=== PATIENT | female | born 1935 | race Caucasian/White ===

== ENCOUNTER 2022-07-02 13:22 | Outpatient (CLI) | payer OTHER, SELFPAY ==
[2022-07-02 15:58] LABS: Basophils Percent Auto 0.3 % (0.2-1.2); Eosinophils Absolute Auto 0.2 K/mm3 (0-0.3); Eosinophils Percent Auto 1.9 % (0-4.4); Hematocrit 40.4 % (37.0-47.0); Hemoglobin 13.1 g/dL (12.0-15.0); Immature Granulocyte Absolute 0.03 K/mm3 (0.00-0.031); Immature Granulocyte Percent A 0.3 % (0-0.5); Lymphocytes Absolute Auto 2.36 K/mm3 (0.9-3.2); Lymphocytes Percent Auto 23.1 % (18.3-44.2); Mean Corpuscular HGB Conc 32.4 g/dl (32-36); Mean Corpuscular Volume 95.7 fl (80-100); Mean Platelet Volume 9.9 fl (7.4-10.4); Monocytes Absolute Auto 0.8 K/mm3 (0.1-0.6); Monocytes Percent Auto 8.2 % (2.6-8.5); Neutrophils Absolute Auto 6.8 K/mm3 (1.3-6.7); Neutrophils Percent Auto 66.2 % (45.5-73.1); Platelet Count Result 325 k/mm3 (150-375); Red Blood Count 4.22 M/mm3 (4.2-5.4); Red Cell Distribution Width 12.8 % (11.5-14.5); White Blood Count 10.2 K/mm3 (4.5-10.0)
[2022-07-02 16:08] LABS: Albumin Level 4.3 g/dL (3.5-5.1); Anion Gap 7 mmol/L (8-16); Blood Urea Nitrogen 21 mg/dL (7-17); Calcium 9.7 mg/dL (8.4-10.2); Carbon Dioxide 33 mmol/L (22-30); Chloride 97 mmol/L (98-107); Estimated Glomerular Filt Rate 59; Glucose 86 mg/dL (65-110); Potassium 3.7 mmol/L (3.4-5.0); Sodium 137 mmol/L (137-145)
[2022-07-02 16:26] LABS: Hemoglobin A1C 5.3 % (<5.7)
[2022-07-02 19:29] LABS: Urine Cotinine NEGATIVE
== END 2022-07-02 13:23 | disposition home or self-care (01) ==
PROVIDERS: PCP Nurse Practitioner Family; Visit Provider Orthopaedic Surgery
DX: M17.11 Unilateral primary osteoarthritis, right knee (principal); Z01.818 Encounter for other preprocedural examination
CPT/HCPCS: 80048; 80307; 82040; 83036; 85025; 87081

== ENCOUNTER 2022-07-29 01:35 | Day surgery (SDC) | payer OTHER, SELFPAY ==
--- NOTE | 2022-07-02 12:45 | PC.NURSE ---
Addendum entered by Polly Zaragoza RN 07/02/22 14:15: PT AWARE SURGERY DATE IS 07/29/22 NOT 05/31/22 Original Note: Report to the Outpatient Waiting Room, entrance under the green pavilion located off [facility], at time _0600_ on date _05/31/22_. Planned Procedure Time: _0730_. PACK A SMALL OVERNIGHT BAG AND LEAVE IN THE CAR ALONG WITH YOUR WALKER Time changes happen often and if your time is changed the preop area will call you the afternoon before. - You and your visitor will be asked to self-screen and do not enter if you have any COVID symptoms. - Only one visitor is requested with a max of two and NO children visitors are allowed at this time. - The patient visitor may be requested to leave or wait in car when not with patient due to distancing restrictions. - A mask is optional within the hospital at this time. -VISITING HOURS 8AM-8PM Patients may have clear liquids (water, carbonated beverages, clear teas, apple juice) until 3 hours prior to surgery (0430 AM) with a maximum of 20 ounces. - No food from midnight until time of surgery Take the following medications with a SIP of water the morning of surgery: _METOPROLOL_ DO NOT STOP ANY OF YOUR OTHER PRESCRIPTION MEDICATIONS PRIOR TO SURGERY ?EXCEPT THE FOLLOWING Medications to discontinue - _MULTIVITAMIN PER DR. ELLISON'S INSTRUCTIONS_ Please no make-up, nail greek, hairspray, perfume, deodorant, or body powder the day of surgery. No jewelry (including any body piercings) or valuables the day of surgery, leave them at home. Please take a shower or bath the night before, or the morning of, surgery with an antibacterial soap. Wear comfortable, loose fitting clothing. - Jewelry must be removed prior to entering the operating room. Rings and piercings that are not removed may be cut off. - The hospital will not accept responsibility for valuables. - Please leave all valuables, including medications, at home the day of surgery. If you are going home after surgery, a licensed tank truck driver must drive you home. - NO public transportation without another adult if you receive anesthesia. - We recommend that an adult stay with you for 24 hours following discharge. - We also recommend that you do not drive, make important decision, drink alcoholic beverages, or take any drugs that were not prescribed by your health care provider for at least 24 hours after your discharge time. Follow any additional instructions given to you from DR. ELLISON. TOTAL JOINT CLASS 07/10/22 @ [address] [place] [address] ENTRANCE #2 - LOWER LEVEL If you or anyone in your household have experienced Covid symptoms in the past week, please notify your surgeon or the nurse liaison at the phone number below for possible testing. Instructions given to _PATIENT_and asked if any additional questions and then verbalized understanding. Patient advised to call surgeon office or pre surgery nurse liaison [phone] if any additional questions.
[2022-07-02 13:49] VITALS: BP 162/60; PULSE 64; RESP 18; TEMP 37.2; O2SAT 100; BMI 30.3
--- NOTE | 2022-07-26 07:36 | PM.IMHP ---
H&P: HPI History of Present Illness Date/Time: 07/26/22 07:36 Chief Complaint: Right knee medial compartment osteoarthritis Narrative: 87-year-old female patient Dr. Patel who presents today for a right [place] partial knee replacement versus total knee replacement. Patient is a very active healthy 87-year-old. She has severe medial compartment osteoarthritis. She has been treating this nonsurgically with cortisone injections the last 1 was in February 2022. It often her limited improvement of her symptoms. Pain in the knee is bothering her on a daily basis. It is limiting her activities on a daily basis as well. Patient feels that she would rather proceed with partial knee replacement rather than continue nonsurgical treatment. Patient did undergo left total knee replacement in September of 2018 and had an uneventful recovery. Review of Systems Review of Systems: All systems reviewed & are unremarkable except as noted in HPI and below PMFSH Social History Social History Smoking status: Never smoker Second hand tobacco smoke exposure: No Additional smoking assessment comments: PT DENIES ALL FORMS OF TOBACCO USE Alcohol intake: never Substance use: never Substance use type: does not use Living arrangements: alone Spiritual care concerns: No Meds Home Medications and Allergies Home Medications Medication Instructions Recorded Confirmed Type amlodipine 5 mg-benazepril 40 mg 1 cap QA 07/02/22 07/02/22 History capsule calcium carbonate 600 mg-vitamin 1 tablet PO DAILY 07/02/22 07/02/22 History D3 5 mcg (200 unit) tablet hydrochlorothiazide 25 mg tablet 25 mg QAM 07/02/22 07/02/22 History metoprolol tartrate 50 mg tablet 50 mg BID 07/02/22 07/02/22 History multivitamin 1 tablet PO DAILY 07/02/22 07/02/22 History Allergies Allergy/AdvReac Type Severity Reaction Status Date / Time No Known Allergies Allergy Unverified 07/02/22 13:43 Exam Narrative: 87-year-old female alert pleasant. She is 5 ft 1 and 177 lb. Right knee range of motion is from 0-125 degrees. No effusion. Negative Mike's. Mild medial joint line tenderness to palpation. Hip range of motion is full without discomfort, negative Stinchfield maneuver. Normal quad strength. Normal sensation. 2+ dorsalis pedis pulse palpable. No edema in lower extremities. Resp: Auscultation: clear to auscultation bilaterally Cardio: Rate: regular rate Rhythm: regular rhythm Assessment and Plan Assessment and plan (1) Right knee DJD: Code(s): M17.11 - Unilateral primary osteoarthritis, right knee Status: Acute Plan 87-year-old female who has predominantly medial compartment osteoarthritis the right knee. It is felt that she would be a good candidate for partial knee replacement. Surgical procedure as well as risks and complications were discussed in detail questions were answered and we will proceed. Patient has seen her primary care doctor as well as her window shade cutter and mounter and has been cleared. Nasal swab was negative. Chem panel was all within normal limits creatinine is 0.90. Hemoglobin is 13.1 platelets are 325. We will use Eliquis DVT prophylaxis postoperatively.
[2022-07-29] VITALS (13 sets, daily range): BP systolic 128–149; BP diastolic 45–66; PULSE 58–74; RESP 14–20; TEMP 36.3–36.9; O2SAT 91–100
--- NOTE | ~2022-07-29 | XR_ITS ---
EXAMINATION: XR surgery orthopedic DATE: 07/29/2022 08:50 INDICATION: Right knee arthroplasty TECHNIQUE: 4 fluoroscopic images of the right knee were obtained during procedure performed by Dr. Amish culp. Radiologist was not present for the imaging or procedure. The amount of fluoroscopy time used during this procedure was 0.4 minutes. COMPARISON: None. FINDINGS: Guide pin underlying osteotomy at the medial tibial plateau with placement of a likely trial tray for a medial unicompartmental arthroplasty. Expected intra-articular gas at the medial compartment. No f ractures identified. IMPRESSION: 1. Fluoroscopy utilized during a right knee medial unicompartmental arthroplasty. Reviewed, dictated and finalized at location A. IMPRESSION: 1. Fluoroscopy utilized during a right knee medial unicompartmental arthroplast yKimberlyn
--- NOTE | ~2022-07-29 | XR_ITS ---
EXAMINATION: [id number] DATE: 07/29/2022 10:56 INDICATION: Right knee arthroplasty. Postop. TECHNIQUE: 2 views of right knee were obtained. COMPARISON: None. FINDINGS: There is a medial compartment arthroplasty in near-anatomic alignment. No fracture. There i s mild osteoarthritis of patellofemoral compartment. There is gas in the soft tissues, consistent wit h recent surgery. IMPRESSION: 1. Medial compartment arthroplasty in near-anatomic alignment. Reviewed, dictated and finalized at location A.
[2022-07-29] MEDS: ACETAMINOPHEN 500 MG TABLET 1000 MG PO ×2 (06:30→18:22)
[2022-07-29] MEDS: TRANEXAMIC ACID 1,000MG/ISO100 1,000 MG/100 ML BAG 200 MG IVPB (07:02)
--- NOTE | 2022-07-29 07:02 | WPDANESEPPF ---
Anes - Initial Pre Proc Eval Procedure: Operation Date: 07/29/22 07:30 Proposed Procedures p Right [place] Partial Knee Replacement Versus Possible Right Total Knee Arthroplasty - Maycol Ko MD Date/Time: 07/29/22 07:02 Surgeon: Maycol Ko MD Pre Op Diagnosis: medial compartment OA right knee Patient Data Age: 87 Gender: F Height: 1.61 m Weight: 77.7 kg Last Vital Signs Temp 37.2 C 07/02/22 13:49 Pulse 64 07/02/22 13:49 Resp 18 07/02/22 13:49 BP 162/60 H 07/02/22 13:49 Pulse Ox 100 07/02/22 13:49 O2 Del Method Room Air 07/02/22 13:49 Allergies Allergy/AdvReac Type Severity Reaction Status Date / Time No Known Allergies Allergy Unverified 07/29/22 06:23 Home Medications Medication Instructions Recorded Confirmed Type amlodipine 5 mg-benazepril 40 mg 1 cap QAM 07/02/22 07/29/22 History capsule calcium carbonate 600 mg-vitamin 1 tablet PO DAILY 07/02/22 07/29/22 History D3 5 mcg (200 unit) tablet hydrochlorothiazide 25 mg tablet 25 mg QAM 07/02/22 07/29/22 History metoprolol tartrate 50 mg tablet 50 mg BID 07/02/22 07/29/22 History multivitamin 1 tablet PO DAILY 07/02/22 07/29/22 History Patient hx anesthesia problems: none Family hx anesthesia problems: none Results Review: All pre-operative results and documents have been reviewed as part of the pre-operative evaluation. [facility] Social History Social History Smoking status: Never smoker Second hand tobacco smoke exposure: No Additional smoking assessment comments: PT DENIES ALL FORMS OF TOBACCO USE Alcohol intake: never Substance use: never Substance use type: does not use Living arrangements: alone Spiritual care concerns: No Anes - Eval Final PreProcedure Day of Procedure 07/29/22 07:02 Patient weight: overweight Heart: regular rate and rhythm Lungs: clear to auscultation Airway: Mallampati scale class II Neurological: alert and oriented Last oral intake: >/= 8 hours ASA classification: III Emergent: no Anesthetic plan: proceed Anesthesia type and monitoring: general LMA and standard monitoring Results Review: All pre-operative results and documents have been reviewed as part of the pre-operative evaluation. Informed Consent: The patient's anesthetic plan and its attendant risks and benefits were discussed with the patient/family/POA. Questions were solicited and answers provided to the satisfaction of the patient/family/POA.
[2022-07-29] MEDS: LACTATED RINGERS 1,000 ML 30 ML IV CONT ×2 (07:04→10:49)
--- NOTE | 2022-07-29 07:14 | WPDHPUPDATE1 ---
History and Physical Update Update Date/Time: 07/29/22 07:14 History and Physical has been reviewed, including an updated exam of the patient. There are NO changes in the patient's condition. Risks, benefits, and alternatives have been discussed and questions answered. Patient agrees to proceed with procedure.
[2022-07-29] MEDS: ceFAZolin 2 GM/D5W 50 ML 2 GM/50 ML BAG IVPB (07:30)
[2022-07-29] MEDS: ceFAZolin SODIUM 1 GM VIAL 3 GM (08:02)
[2022-07-29] MEDS: GENTAMICIN BONE CEMENT REFOBACIN 2 EACH TOPICAL (08:04)
[2022-07-29] MEDS: TRANEXAMIC ACID 1,000 MG/10 ML AMPUL 1000 MG IV PUSH (10:21)
[2022-07-29] MEDS: ceFAZolin SODIUM 1 GM VIAL IV PUSH (10:22)
--- NOTE | 2022-07-29 10:55 | PM.OP ---
Procedure Note - Brief Procedure Note - Brief Date of procedure: 07/29/22 <MERCEDEZ Colon - Last Filed: 07/29/22 10:56> 07/29/22 <Maycol Ko MD - Last Filed: 07/29/22 11:07> medial compartment OA right knee <MERCEDEZ Colon - Last Filed: 07/29/22 10:56> Procedure performed: Right [place] partial knee replacement <MERCEDEZ Colon - Last Filed: 07/29/22 10:56> Surgeon: MERCEDEZ Colon <MERCEDEZ Colon - Last Filed: 07/29/22 10:56> Description of procedure: 87-year-old female who underwent [place] partial knee replacement on 07/29. I was involved in the procedure including positioning patient on the OR table in 1st medical services assistant to time surgery. Total time spent was 3 hours. <MERCEDEZ Colon - Last Filed: 07/29/22 10:56> Urine output (mL): -50.0 <MERCEDEZ Colon - Last Filed: 07/29/22 10:56>
--- NOTE | 2022-07-29 11:25 | W.PM.PROC2 ---
Procedure Note - Detailed Date of Procedure 07/29/22 Pre-op Diagnosis medial compartment OA right knee Post-op Diagnosis Same Procedure Performed [place] partial knee replacement right knee Surgeon Maycol Ko MD Manager Care Management zakiya Anesthesia General Description of Procedure Patient was brought to the operating room and general anesthesia was administered the right knee prepped draped usual fashion with the thigh supported on special thigh mckee with additional padding the silicone pads. She received weight based vancomycin 2 g Ancef 1 g of tranexamic acid preoperatively. Limb was exsanguinated tourniquet elevated to 300 mmHg. A 4 in longitudinal incision was made from superior pole of the patella to 3 cm distal to the joint line. Dissection was carried down through the subcutaneous fat and a parapatellar arthrotomy was utilized with a 2 cm vastus medialis split at the superior pole the patella. Small amount of the fat pad was excised. Osteophytes from the medial patella intercondylar notch anteromedial tibia and medial femoral condyle removed. The medium spoon fit properly. We used the 2 mm spoon and linked this with the tibial cutting guide shooting for 7? of posterior slope. Wafer was removed and a wafer fit the size C perfectly and replied the size C trial on the tibia brought in the mini C-arm and saw that this fit line to line all the way around. Center line was marked on the femur intramedullary josr inserted and we linked the medium drill guide to the intramedullary josr set at 3 mm centered this on the medial femoral condyle and drilled the holes. The medium posterior cutting block was applied posterior chamfer removed and then the distal femur was milled with a 0 spigot and we trialed after complete removal of remaining meniscus posterior horn which decompress the popliteal cyst in the back of the knee. The 3 Feeler was tight at 100? of flexion. We then reapplied the tibial cutting guide same hole use the 1 mm Sarah an additional mm of bone was carefully removed the tibial plateau. On repeat trialing this time the 4 Feeler seemed appropriate at 100? of flexion. And extension the 1 had play the 2 when in but was a little snug. We applied the 2 spigot and milled. The collar was trimmed and planed and we trialed and we were a little bit tight in extension trialing with a 4 bearing to assess wiggle to assess tightness . Three spigot was placed and we carefully removed 1 more mm of distal femur and this time on trial we had equal we will flexion and extension. The impingement guide was applied and we milled for the anterior impingement recess and removed a small posterior femoral osteophyte. The tibia was prepared with the toothbrush saw making the keel slot and we trialed with the tibia with keel and showed few degrees of hyperextension and full flexion without impingement. Step drill was used to make perforations in the tibial plateau and distal femur the bony surfaces thoroughly irrigated and dried. One batches of cement was mixed and applied to the see tibial component, the cement pressurized in the tibia the see fully seated trial femur and 4 mm bearing at 45? of flexion the tourniquet was released at 94 minutes. After cement hardening excess cement was sought for removed we are re-exsanguinated the limb and after irrigation and drying repeated the cementing process on the medial femur inserting the 4 mm Feeler at 45? of flexion with compression tourniquet was released after additional 5 minutes. After cement hardening excess cement was sought for removed and we trialed with a 4 bearing which allowed full range of motion appropriate wiggle and normal tracking. Small anvil osteophyte was. The 4 mm bearing was snapped into place range of motion stability reconfirmed. Local anesthetic cocktail injected. Arthrotomy was closed with 2. Vicryl 1. Unidirectional barbed Stratafix suture skin closed with 2 subcutaneous Vicryl and glue EBL was 100 cc. 3
--- NOTE | 2022-07-29 11:50 | PC.NURSE ---
This patient, Kierra Bishop, was admitted to 3 Med Surg Room 328-01. Patient/family oriented to hospital policies and general routines including ID bracelet, bed and alarms, visiting hours, pain management, procedures, bathroom and other care routines, personal items, smoking policy, room service/diet, and visiting hours.Report received from Clyde REYEZ. Information on how to activate the Rapid Response Team has been discussed. Patient/Family are encouraged to report perceived risks to care and to ask questions if they do not understand what they are told or what they should do.
--- NOTE | 2022-07-29 12:45 | PM.IMCN ---
Assessment and Plan Assessment and plan (1) History of arthroplasty of right knee: Code(s): Z96.651 - Presence of right artificial knee joint Status: Acute Assessment and Plan: Postop care per Dr. ko Pain management per orthopedic physician. The patient has fentanyl and morphine ordered as well as oxycodone PT OT per orthopedic physician DVT prophylaxis per orthopedic physician. The patient has SCDs and Eliquis (2) Hypertension: Code(s): I10 - Essential (primary) hypertension Status: Acute Assessment and Plan: Continue with lisinopril, metoprolol, Norvasc and hydrochlorothiazide HPI Data of Consult Consult date: 07/29/22 Requesting Physician: Maycol Ko MD Primary Care Provider: Diane Forman, TOP TAPER MACHINE Consult Narrative Narrative: Kierra Bishop is a 87 year old female who is a very active healthy 87-year-old female patient she has had severe medial compartment osteoarthritis. She has been attempting nonsurgical treatment with cortisone injections. She has had minimal relief with her treatment. Pain has been bothersome on a daily basis. This discomfort limits her activities on a daily basis. The patient underwent an [place] partial knee replacement on the right side today per Dr. Ko. According to the operative note the patient lost 100 mL of blood. When I assessed the patient she was complaining of right eye irritation. Otherwise she had no other complaints. The patient is being admitted to orthopedic physician. The hospitalist group has been asked to consult on the date of service of 07/29/2022. Review of Systems Review of Systems: All systems reviewed & are unremarkable except as noted in HPI and below Constitutional: Constitutional: Reports as per HPI and Reports no additional constitutional complaints Eyes: Eyes: Reports as per HPI and Reports no additional eye complaints ENT: Reports system reviewed and no additional complaints, except as documented and Reports Normal hearing present Cardiovascular: Cardiovascular: Reports no additional cardiovascular complaints Respiratory: Respiratory: Reports no additional respiratory complaints and Reports no additional respiratory complaints Gastrointestinal: Gastrointestinal: Reports as per HPI and Reports no additional gastrointestinal complaints Musculoskeletal: Musculoskeletal: Reports no additional musculoskeletal complaints Integumentary/Breasts: Skin/Breast: Reports system reviewed and no additional complaints, except as docu and Reports as per HPI Neurologic: Reports system reviewed and no additional complaints, except as documented, Reports as per HPI and Reports Normal hearing present Psychiatric: Psychiatric: Reports no additional psychiatric complaints and Reports as per HPI Endocrine: Endocrine: Reports no additional endocrine complaints Hematologic/Lymphatic: Hematologic/Lymphatic: Reports no additional hematologic/lymphatic complaints Allergic/Immunologic: Allergic/Immunologic: Reports no additional allergic/immunologic complaints [facility] Past Medical History Medical History (Updated 07/29/22 @ 15:50 by Ashley Mcarthur NP) Diverticulosis Hypertension Surgical History Surgical History (Updated 07/29/22 @ 15:51 by Ashley Mcarthur NP) H/O cataract extraction History of arthroplasty of right knee Partial 07/29/2022 History of colonoscopy History of removal of pigmented skin lesion History of total knee arthroplasty Left knee Family History Family History (Updated 07/29/22 @ 15:51 by Ashley Mcarthur NP) Father Leukemia Social History Social History (Updated 07/29/22 @ 15:52 by Ashley Mcarthur NP) Social History: She is and has 2 children. She lives home alone. She is retired from [employer]. 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 Code status full code Smoking status: Never smoker Second hand tobacco smoke exposure
[2022-07-29] MEDS: ACETAMINOPHEN 325 MG TABLET 650 MG PO (13:19)
[2022-07-29] MEDS: PROPARACAINE HCL 0.5% 15 ML OPHTH SOLN 1 DROP EACH EYE (13:53)
[2022-07-29] MEDS: DICLOFENAC SODIUM 0.1% OPHTH SOLN 2.5 ML BOTTLE 1 DROP EACH EYE ×2 (14:17→20:09)
[2022-07-29] MEDS: ceFAZolin 1 GM/NS 50 ML 1 GM/50 ML BAG IVPB ×2 (15:07→23:32)
[2022-07-29] MEDS: MOXIFLOXACIN HCL 0.5% 3 ML OPHTH SOLN 1 DROP EACH EYE ×2 (15:07→20:10)
[2022-07-29] MEDS: METOPROLOL TARTRATE 50 MG TAB PO (20:08)
[2022-07-29] MEDS: FAMOTIDINE 20 MG TABLET PO (20:09)
[2022-07-30] VITALS: BP 133/64; PULSE 55; PULSE 64; RESP 14; TEMP 36.4; O2SAT 97
[2022-07-30 04:00] VITALS: BP 144/60; PULSE 56; PULSE 58; RESP 13; TEMP 36.2; O2SAT 98
[2022-07-30] MEDS: DICLOFENAC SODIUM 0.1% OPHTH SOLN 2.5 ML BOTTLE 1 DROP EACH EYE (05:46)
[2022-07-30] MEDS: MOXIFLOXACIN HCL 0.5% 3 ML OPHTH SOLN 1 DROP EACH EYE (05:46)
[2022-07-30] MEDS: ACETAMINOPHEN 500 MG TABLET 1000 MG PO ×2 (05:46→11:29)
[2022-07-30] MEDS: ceFAZolin 1 GM/NS 50 ML 1 GM/50 ML BAG IVPB (05:48)
[2022-07-30 06:36] LABS: Basophils Percent Auto 0.2 % (0.2-1.2); Eosinophils Absolute Auto 0.1 K/mm3 (0-0.3); Eosinophils Percent Auto 0.5 % (0-4.4); Hematocrit 35.3 % (37.0-47.0); Hemoglobin 11.5 g/dL (12.0-15.0); Immature Granulocyte Absolute 0.05 K/mm3 (0.00-0.031); Immature Granulocyte Percent A 0.4 % (0-0.5); Lymphocytes Absolute Auto 1.71 K/mm3 (0.9-3.2); Lymphocytes Percent Auto 13.2 % (18.3-44.2); Mean Corpuscular HGB Conc 32.6 g/dl (32-36); Mean Corpuscular Hemoglobin 31.6 pg (26-34); Mean Platelet Volume 9.6 fl (7.4-10.4); Monocytes Percent Auto 7.5 % (2.6-8.5); Neutrophils Absolute Auto 10.2 K/mm3 (1.3-6.7); Neutrophils Percent Auto 78.2 % (45.5-73.1); Platelet Count Result 259 k/mm3 (150-375); Red Blood Count 3.64 M/mm3 (4.2-5.4); Red Cell Distribution Width 12.8 % (11.5-14.5)
[2022-07-30 06:48] LABS: Anion Gap 5 mmol/L (8-16); Blood Urea Nitrogen 27 mg/dL (7-17); Calcium 8.9 mg/dL (8.4-10.2); Carbon Dioxide 29 mmol/L (22-30); Chloride 97 mmol/L (98-107); Estimated CRCL calculation 31 ml/min; Estimated Glomerular Filt Rate 47; Glucose 95 mg/dL (65-110); Potassium 3.7 mmol/L (3.4-5.0); Sodium 131 mmol/L (137-145)
[2022-07-30 08:00] VITALS: BP 129/58; PULSE 55; PULSE 65; RESP 18; TEMP 35.9; O2SAT 98
[2022-07-30 08:18] VITALS: PULSE 60
[2022-07-30] MEDS: CELECOXIB 100 MG CAPSULE PO (08:18)
[2022-07-30] MEDS: METOPROLOL TARTRATE 50 MG TAB PO (08:18)
[2022-07-30] MEDS: SENNA/DOCUSATE SODIUM TABLET 2 TAB PO (08:18)
[2022-07-30] MEDS: lisinopriL 20 MG TABLET 40 MG PO (08:19)
[2022-07-30] MEDS: amLODIPine BESYLATE 5 MG TABLET PO (08:20)
[2022-07-30] MEDS: hydroCHLOROthiazide 25 MG TABLET PO (08:20)
[2022-07-30] MEDS: APIXABAN 2.5 MG TABLET PO (08:20)
[2022-07-30] MEDS: FAMOTIDINE 20 MG TABLET PO (08:20)
[2022-07-30] MEDS: polyethylene glycoL 3350 17 GM POWD.PACK PO (08:21)
--- NOTE | 2022-07-30 10:18 | WPDANESPN ---
Anes - Prog Note Post-Op Date/Time: 07/30/22 10:18 Cardiovascular status: normal Respiratory status: normal Airway patency: baseline Mental status: baseline Post-Op hydration status: normal Vital Signs: Last Vital Signs Temp 35.9 C L 07/30/22 08:00 Pulse 60 07/30/22 08:18 Resp 18 07/30/22 08:00 BP 129/58 L 07/30/22 08:00 Pulse Ox 98 07/30/22 08:00 O2 Del Method Room Air 07/29/22 13:52 O2 Flow Rate 2 07/29/22 11:30 Pain Score (VAS): 06/14 I/O: Intake & Output 07/29/22 07/30/22 07/30/22 23:59 07:59 15:59 Intake Total 490 600 360 Balance 490 600 360 Laboratory Tests 07/30/22 06:26 07/30/22 06:26 07/30/22 07/30/22 06:26 06:26 WBC 13.0 H RBC 3.64 L Hgb 11.5 L Hct 35.3 L MCV 97.0 MCH 31.6 MCHC 32.6 RDW 12.8 Plt Count 259 MPV 9.6 Immature Gran % (Auto) 0.4 Neut % (Auto) 78.2 H Lymph % (Auto) 13.2 L [place] % (Auto) 7.5 Eos % (Auto) 0.5 Baso % (Auto) 0.2 Lymph # (Auto) 1.71 [place] # (Auto) 1.0 H Eos # (Auto) 0.1 Baso # (Auto) 0.0 Abs Immat Gran (auto) 0.05 H Absolute Neuts (auto) 10.2 H Absolute Nucleated RBC 0.0 Nucleated RBC % 0.0 Sodium 131 L Potassium 3.7 Chloride 97 L Carbon Dioxide 29 Anion Gap 5 L BUN 27 H Creatinine 1.10 H Estim Creat Clear Calc 31 Estimated GFR 47 L Glucose 95 Calcium 8.9 Post-procedural complaints: other (corneal abrasion, recommended patient to follow up with opthlamologist if problem persists after discharge) Patient Feedback: Patient satisfied with anesthetic care.
--- NOTE | 2022-07-30 11:25 | PM.PNORT ---
Subjective Subjective Date/Time Seen: 07/30/22 11:25 Postop day 1 patient is alert. Afebrile vital signs are stable. Morning labs are noted. Patient did well with physical therapy this morning. She had little bit of nausea last night postop most likely from anesthesia. This is completely cleared. She had no emesis. Dressing is dry and intact. Neurovascularly she is intact. Pain is well controlled. Plan to discharge the patient this morning. Objective Data Vital Signs Vital Signs: Vital Signs - 24 hr 07/29/22 11:30 07/29/22 11:55 07/29/22 12:10 Temperature 36.6 C 36.4 C L Pulse Rate 62 59 L 61 Respiratory Rate 20 14 16 Blood Pressure 133/63 140/66 143/65 H Pulse Oximetry 96 91 98 Oxygen Delivery Nasal Cannula Oxygen Flow Rate 2 07/29/22 12:40 07/29/22 13:52 07/29/22 13:45 Temperature 36.4 C 36.4 C L Pulse Rate 58 L 62 Respiratory Rate 14 18 Blood Pressure 149/59 H 137/65 Pulse Oximetry 100 95 Oxygen Delivery Room Air Oxygen Flow Rate 07/29/22 16:00 07/29/22 13:40 07/29/22 20:08 Temperature 36.4 C L Pulse Rate 66 62 68 Respiratory Rate 18 Blood Pressure 137/65 Pulse Oximetry 95 Oxygen Delivery Oxygen Flow Rate 07/29/22 20:00 07/30/22 00:00 07/29/22 20:00 Temperature 36.3 C L 36.4 C L Pulse Rate 65 64 59 L Respiratory Rate 14 14 Blood Pressure 128/45 L 133/64 Pulse Oximetry 94 97 Oxygen Delivery Oxygen Flow Rate 07/30/22 00:00 07/30/22 04:00 07/30/22 04:00 Temperature 36.2 C L Pulse Rate 55 L 56 L 58 L Respiratory Rate 13 Blood Pressure 144/60 H Pulse Oximetry 98 Oxygen Delivery Oxygen Flow Rate 07/30/22 08:00 07/30/22 08:18 07/30/22 08:00 Temperature 35.9 C L Pulse Rate 55 L 60 Respiratory Rate 18 Blood Pressure 129/58 L Pulse Oximetry 98 Oxygen Delivery Room Air Oxygen Flow Rate 07/30/22 08:00 Temperature Pulse Rate 65 Respiratory Rate Blood Pressure Pulse Oximetry Oxygen Delivery Oxygen Flow Rate Intake/Output Intake/Output: Intake & Output 07/27/22 07/28/22 07/29/22 07/30/22 23:59 23:59 23:59 23:59 Intake Total 1040 960 Balance 1040 960 Meds/Results Medications: Active Medications Generic Name Dose Route Start Last Admin Trade Name Freq PRN Reason Stop Dose Admin Acetaminophen 1,000 mg 07/29/22 18:00 07/30/22 05:46 Acetaminophen 500 Mg Tablet PO 1,000 mg Q6H DARRIAN Administration Amlodipine Besylate 5 mg 07/30/22 09:00 07/30/22 08:20 Amlodipine Besylate 5 Mg Tablet PO 5 mg DAILY DARRIAN Administration Apixaban 2.5 mg 07/30/22 09:00 07/30/22 08:20 Apixaban 2.5 Mg Tablet PO 08/10/22 21:01 2.5 mg Q12HR DARRIAN Administration Artificial Tears 1 drop 07/29/22 13:27 Artificial Tears Ophth Soln 15 Ml Bottle EACH EYE Q2H PRN Dry Eye(s) Celecoxib 100 mg 07/30/22 08:00 07/30/22 08:18 Celecoxib 100 Mg Capsule PO 100 mg DAILY@0800 DARRIAN Administration Cephalexin HCl 500 mg 07/30/22 12:00 Cephalexin 500 Mg Capsule PO Q6HR DARRIAN Diclofenac Sodium 1 drop 07/29/22 14:00 07/30/22 05:46 Diclofenac Sodium 0.1% Ophth Soln 2.5 Ml Bottle EACH EYE 08/02/22 13:59 1 drop Q8HR DARRIAN Administration Diphenhydramine HCl 25 mg 07/29/22 11:36 Diphenhydramine Hcl Inj 50 Mg/Ml Vial IV PUSH Q6H PRN Itching Famotidine 20 mg 07/29/22 21:00 07/30/22 08:20 Famotidine 20 Mg Tablet PO 20 mg Q12HR DARRIAN Administration Hydrochlorothiazide 25 mg 07/30/22 09:00 07/30/22 08:20 Hydrochlorothiazide 25 Mg Tablet PO 25 mg QAM DARRIAN Administration Lisinopril 40 mg 07/30/22 09:00 07/30/22 08:19 Lisinopril 20 Mg Tablet PO 40 mg QAM DARRIAN Administration Metoprolol Tartrate 50 mg 07/29/22 21:00 07/30/22 08:18 Metoprolol Tartrate 50 Mg Tab PO 50 mg Q12HR DARRIAN Administration Morphine Sulfate 2 mg 07/29/22 11:36 Morphine Sulfate (*Crx) 2 Mg/Ml Inj IV PUSH Q4H PRN Pain Rated 7
[2022-07-30] MEDS: CEPHALEXIN 500 MG CAPSULE PO (11:28)
--- NOTE | 2022-07-30 11:29 | PM.DS ---
DS: Admitting Diagnosis Discharge Date 07/30 Admitting Diagnosis right knee DJD DS: Discharge Diagnosis Discharge Diagnosis (1) History of arthroplasty of right knee: Code(s): Z96.651 - Presence of right artificial knee joint Status: Acute DS: Summary Hospital Course Hospital Course: 87-year-old female underwent [place] partial knee replacement her right knee 07/29. Underwent the procedure without complications. Postoperatively she has been afebrile vital signs are stable. Her dressing is dry and intact. She was up walking the afternoon following surgery and is doing well. She is on Celebrex 100 mg daily. She is on oxycodone 2.5 mg as well scheduled Tylenol for pain control. Overall pain is very well controlled. She is on Eliquis for DVT prophylaxis. She will be discharged home on 07/30. Patient was advised keep leg elevated home prevent swelling. She has outpatient therapy starting this . Patient will also go home on Senokot and MiraLax for constipation she will also go home on 1 week of Keflex. Overall patient is doing very well. She was advised any questions or concerns she is to call the office otherwise we will see her at her appointed date. Time Spent with Patient Time attestation: Total time spent providing and/or coordinating discharge services: DS: Data Data Completed and Pending Labs on day of discharge: Labs from last 24 hours 07/30/22 07/30/22 06:26 06:26 WBC 13.0 H RBC 3.64 L Hgb 11.5 L Hct 35.3 L MCV 97.0 MCH 31.6 MCHC 32.6 RDW 12.8 Plt Count 259 MPV 9.6 Immature Gran % (Auto) 0.4 Neut % (Auto) 78.2 H Lymph % (Auto) 13.2 L [place] % (Auto) 7.5 Eos % (Auto) 0.5 Baso % (Auto) 0.2 Lymph # (Auto) 1.71 [place] # (Auto) 1.0 H Eos # (Auto) 0.1 Baso # (Auto) 0.0 Abs Immat Gran (auto) 0.05 H Absolute Neuts (auto) 10.2 H Absolute Nucleated RBC 0.0 Nucleated RBC % 0.0 Sodium 131 L Potassium 3.7 Chloride 97 L Carbon Dioxide 29 Anion Gap 5 L BUN 27 H Creatinine 1.10 H Estim Creat Clear Calc 31 Estimated GFR 47 L Glucose 95 Calcium 8.9 Discharge Plan Discharge Patient Disposition: Home, Self-Care Discharge Instructions: MAYCOL KO M.D [facility], [place] [id number] [place] [address] POST-OPERATIVE DISCHARGE INSTRUCTIONS TOTAL KNEE ARTHROPLASTY 1. When resting, lie on back with leg elevated above heart to minimize swelling. Significant swelling could indicate a blood clot and if this occurs call the office (or go to the ER) to have a venous ultrasound. 2. Do exercise 5 times a day. 3. Do not sit with leg down except for meals. 4. Wound Care: Nursing will give additional dressings at discharge. Patient to change dressing at home 1 week from surgery, then maintain until seen in office. 5. May shower with dressing in place. 6. Follow weight bearing status instructions. IMPORTANT: Remember not to sit in the chair for more than 30 minutes at a time. As a rule, during the first 14 days after surgery, only sit in the chair to work on the chair knee bending stretch exercise, for meals or for use of the restroom. Sitting in the chair promotes significant swelling in the knee and leg which will make the knee stiff and more painful and which simulates having a blood clot in the veins of the leg. If this type of significant diffuse swelling occurs, an ultrasound at the hospital will be necessary to rule out a blood clot. Be up walking around with the walker for a few minutes every hour while awake and then rest laying on your back on the couch or in bed with your leg elevated on cushions or pillows. Do not rest in the chair. Patient Instructions: Apixaban (By mouth) Follow-up/Referrals: Maycol Ko MD [Physician] - Keep Reg. Scheduled Appt. Discharge Medications: New acetaminophen 500 mg Tablet 1,000 mg PO Q6H
[2022-07-30 11:57] VITALS: BP 148/78; PULSE 58; RESP 16; TEMP 36.2; O2SAT 97
--- NOTE | 2022-07-30 12:32 | PM.IMPN ---
Progress Note: A&P Assessment and Plan (1) History of arthroplasty of right knee: Code(s): Z96.651 - Presence of right artificial knee joint Status: Acute Assessment and Plan: Postop care per Dr. mathur Pain management per orthopedic physician. The patient has fentanyl and morphine ordered as well as oxycodone PT OT per orthopedic physician DVT prophylaxis per orthopedic physician. The patient has SCDs and Eliquis 07/30/2022 interval history: patient s/p righ knee partial replacement, POD #1, patient states the pain is better, denies any chest pain or shortness of breath, working with physical therapy, seen by Orthopedic patient be discharged today (2) Hypertension: Code(s): I10 - Essential (primary) hypertension Status: Acute Assessment and Plan: Continue with lisinopril, metoprolol, Norvasc and hydrochlorothiazide Subjective Date/time seen: 07/30/22 12:32 07/30/2022 interval history: patient s/p righ knee partial replacement, POD #1, patient states the pain is better, denies any chest pain or shortness of breath, working with physical therapy, seen by Orthopedic patient be discharged today Review of Systems Review of Systems: All systems reviewed & are unremarkable except as noted in HPI and below Constitutional: Constitutional: Reports as per HPI and Reports no additional constitutional complaints Eyes: Eyes: Reports as per HPI and Reports no additional eye complaints ENT: Reports system reviewed and no additional complaints, except as documented and Reports Normal hearing present Cardiovascular: Cardiovascular: Reports no additional cardiovascular complaints Respiratory: Respiratory: Reports no additional respiratory complaints and Reports no additional respiratory complaints Gastrointestinal: Gastrointestinal: Reports as per HPI and Reports no additional gastrointestinal complaints Musculoskeletal: Musculoskeletal: Reports no additional musculoskeletal complaints Integumentary/Breasts: Skin/Breast: Reports system reviewed and no additional complaints, except as docu and Reports as per HPI Neurologic: Reports system reviewed and no additional complaints, except as documented, Reports as per HPI and Reports Normal hearing present Psychiatric: Psychiatric: Reports no additional psychiatric complaints and Reports as per HPI Endocrine: Endocrine: Reports no additional endocrine complaints Hematologic/Lymphatic: Hematologic/Lymphatic: Reports no additional hematologic/lymphatic complaints Allergic/Immunologic: Allergic/Immunologic: Reports no additional allergic/immunologic complaints Exam Narrative: Patient is comfortable, NAD HEENT: eyes are clear and none icteric LUNGS:CTA HEART: RR S1S2 ABD: BS+, Soft and nontender Lower extremities: no edema SKIN: nonjaundiced Neuro: grossly intact. Objective Data Vital Signs Vital Signs: Vital Signs - 24 hr 07/29/22 12:40 07/29/22 13:52 07/29/22 13:45 Temperature 97.6 F 97.5 F L Pulse Rate 58 L 62 Respiratory Rate 14 18 Blood Pressure 149/59 H 137/65 Pulse Oximetry 100 95 Oxygen Delivery Room Air 07/29/22 16:00 07/29/22 13:40 07/29/22 20:08 Temperature 97.5 F L Pulse Rate 66 62 68 Respiratory Rate 18 Blood Pressure 137/65 Pulse Oximetry 95 Oxygen Delivery 07/29/22 20:00 07/30/22 00:00 07/29/22 20:00 Temperature 97.4 F L 97.5 F L Pulse Rate 65 64 59 L Respiratory Rate 14 14 Blood Pressure 128/45 L 133/64 Pulse Oximetry 94 97 Oxygen Delivery 07/30/22 00:00 07/30/22 04:00 07/30/22 04:00 Temperature 97.2 F L Pulse Rate 55 L 56 L 58 L Respiratory Rate 13 Blood Pressure 144/60 H Pulse Oximetry 98 Oxygen Delivery 07/30/22 08:00 07/30/22 08:18 07/30/22 08:00 Temperature 96.6 F L Pulse Rate 55 L 60 Respiratory Rate 18 Blood Pressure 129/58 L Pulse Oximetry 98 Oxygen Delivery Room Air 07/30/22 08:00 07/30/22 11:57 Temperature 97.2 F
== END 2022-07-30 12:20 | disposition home or self-care (01) ==
LOC: ANHSURGERY 06:01 → ANH3MEDSUR 11:39
PROVIDERS: Physician Assistant Surgical; PCP Nurse Practitioner Family; Visit Provider Orthopaedic Surgery
PROC: (CPT 27446; principal; 2022-07-29 07:30)
DX: M17.11 Unilateral primary osteoarthritis, right knee (principal); I10 Essential (primary) hypertension
CPT/HCPCS: 27446; 36415; 73560; 80048; 80307; 82040; 83036; 85025; 86850; 86900; 86901; 87081; 97110; 97116; 97161; 97165; 97530; 97535; 99199; A9270; C1713; C1776; J0171; J0690; J1100; J1885; J2270; J2405; J2704; J2795; J3010; J3370; J7120